=== PATIENT | male | born 1950 | race Caucasian/White ===

== ENCOUNTER → 2022-06-24 09:24 | Outpatient (CLI) | payer MEDICARE, SELFPAY ==
--- NOTE | ~2022-06-24 | XR_ITS ---
XR knee RT 3V DATE: 06/24/2022 11:49 INDICATION: Right knee pain TECHNIQUE: [place] and standing AP and lateral views COMPARISON: None FINDINGS: Superior pole patellar enthesopathy at the quadriceps tendon insertion site. Mild periarticular spurring at all 3 compartments. Medial and lateral and patellofemoral compartment joint spaces are relatively preserved. No fracture or dislocation or joint effusion. No radiopaque intra-articular loose body or chondrocalc inosis. No periosteal reaction or bone destruction. IMPRESSION: Mild tricompartment osteoarthritis Reviewed, dictated and finalized at location B.
== END ==
PROVIDERS: PCP Internal Medicine; Visit Provider Orthopaedic Surgery
DX: M17.11 Unilateral primary osteoarthritis, right knee (principal)
CPT/HCPCS: 73562

== ENCOUNTER 2024-09-07 14:33 | Outpatient (CLI) | payer MEDICARE, SELFPAY ==
--- NOTE | ~2024-09-07 | XR_ITS ---
EXAMINATION: XR lumbar spine 2-3V DATE: 09/07/2024 15:07 INDICATION: Low back pain. TECHNIQUE: 3 views of lumbar spine on 4 radiographs were obtained. COMPARISON: Lumbar spine radiographs 11/13/2004 FINDINGS: There is 4 degrees levocurvature of lumbar spine. Vertebral body heights are normal. There is mildly decreased disc height at L2-L3. There are osteophytes at all levels. There is multilevel se sj facet joint osteoarthritis. IMPRESSION: 1. Mild lumbar spondylosis. Reviewed, dictated and finalized at location A. IMPRESSION: 1. Mild lumbar spondylosis.
== END 2024-09-07 14:34 | disposition home or self-care (01) ==
LOC: ANHIMG 14:44
PROVIDERS: PCP Internal Medicine; Visit Provider Internal Medicine
DX: M47.896 Other spondylosis, lumbar region (principal)
CPT/HCPCS: 72100